=== PATIENT | male | born 1965 | race Caucasian/White ===

== ENCOUNTER 2018-05-28 20:45 | Emergency (ER) | payer BC ==
[~2018-05-28] VITALS: Ht 185.4 cm; Wt 88.5 kg
[2018-05-28] MEDS ORDERED: TDAP DIPH,PERTUSS,TET VAC/PF 0.5 ML DISP.SYRIN IM ONE ×2 (21:14→21:15)
[2018-05-28] MEDS ORDERED: NEOMY/BACITRA/POLYMYXIN B OINT UD PACKET TP ONE ×2 (21:15→21:21)
[2018-05-28] MEDS ORDERED: AMOXICILLIN-CLAVUL 875-125MG TABLET PO ONE (21:15)
[2018-05-28] MEDS ORDERED: AMOXICILLIN-CLAVUL 875-125MG TABLET ONE (21:20)
--- NOTE | 2018-05-28 21:22 | NUR ---
Patient discharged to home in stable conditon. Written and verbal after care instructions given. Patient verbalizes understanding of instructions.
[2018-05-28 21:23] VITALS: BP 118/92
== END 2018-05-28 21:25 | disposition home or self-care (01) ==
LOC: ER 20:46
DX: S51.851A Open bite of right forearm, initial encounter (principal); I10 Essential (primary) hypertension; W54.0XXA Bitten by dog, initial encounter; Y93.89 Activity, other specified; Y92.89 Other specified places as the place of occurrence of the external cause; Y99.8 Other external cause status
CPT/HCPCS: 90471; 90715; 99283; A4663